=== PATIENT | male | born 1950 | race Hispanic/Latino ===

== ENCOUNTER 2017-12-06 11:11 | Outpatient (CLI) | payer MEDICARE, OTHER ==
--- NOTE | 2017-12-07 08:10 | Cat Scan Report ---
CTA CHEST INDICATION: Ventricular dilatation. COMPARISON: None similar at this institution. FINDINGS: Chest CTA performed following intravenous administration of 100 cc of Omnipaque 350. Rotational MIP's also obtained. Heart size overall within normal limits. No effusions. Unremarkable great vessels. Slight iatrogenic air. Coronary calcifications. Right hilar calcified lymph nodes. No size significant active lymphadenopathy suspected. Patent central airway. Grossly unremarkable thyroid. A 5 mm right upper lobe calcified granuloma, axial image 54, series 2. Otherwise clear lungs. Slight nonspecific distal esophageal prominence/thickening. Contrast reflux into the infracardiac IVC and hepatic veins centrally may suggest mild cardiac dysfunction. Multiple peripherally calcified gallstones measure up to 1 cm. Small splenic calcified granulomas. Lower cervical spine degenerative changes. CONCLUSION: No acute chest CT abnormality with various incidental findings as cholelithiasis, old healed granulomatous disease, coronary calcifications and mild cardiac dysfunction, amongst others, as detailed above. Please correlate. Thank you for the opportunity to participate in this patient's care.
== END 2017-12-06 11:12 | disposition home or self-care (01) ==
LOC: CT 11:11
PROVIDERS: ATTEND Internal Medicine Cardiovascular Disease
DX: M47.892 Other spondylosis, cervical region (principal); I51.7 Cardiomegaly
CPT/HCPCS: 36415; 71275; 82565; Q9967